=== PATIENT | male | born 1975 | race Two or more races ===

== ENCOUNTER 2021-11-12 11:06 | Inpatient (IN) | payer OTHER ==
[~2021-11-12] VITALS: Ht 177.8 cm; Wt 91.7 kg
[2021-11-12] MEDS ORDERED: ONDANSETRON HCL 4 MG/2 ML VIAL IV ONE (12:15)
[2021-11-12] MEDS ORDERED: MORPHINE SULFATE 4 MG/ML SYR/VIAL IV ONE (12:15)
[2021-11-12 13:09] LABS: Basophils # (auto) 0 10 ^3/uL (0-0.2); Basophils % (auto) 0.9 % (0.0-2.0); Eosinophils # (auto) 0.2 10 ^3/uL (0-0.8); Eosinophils % (auto) 5.5 % (0.0-7.0); Hematocrit 41.9 % (41.0-53.0); Hemoglobin 14.2 g/dL (13.5-17.5); Lymphocytes # (auto) 1.9 10 ^3/uL (0.4-5.4); Mean Corpuscular Hgb Conc. 33.9 g/dL (32.0-36.0); Mean Corpuscular Volume 91.5 fL (80.0-100.0); Monocytes # (auto) 0.6 10 ^3/uL (0-1.3); Monocytes % (auto) 14.3 % (0.0-12.0); Neutrophils # (auto) 1.5 10 ^3/uL (1.6-8.6); Neutrophils % (auto) 35.3 % (37.0-80.0); Nucleated Red Blood Cells % 0.1 %; Red Blood Cells 4.57 10^6/uL (4.5-5.90); Red Cell Distribution Width 13.6 % (11.8-14.3); White Blood Cell 4.4 10^3/uL (4.4-10.8)
[2021-11-12 13:18] LABS: Albumin 3.4 g/dL (3.4-5.0); BUN/Creatinine Ratio 14.1; Calcium 8.6 mg/dL (8.5-10.1); Potassium 4.5 mmol/L (3.5-5.1)
[2021-11-12 13:27] LABS: Bilirubin, Total 6.4 mg/dL (0.2-1.0); Total Protein 7.8 g/dL (6.4-8.2)
[2021-11-12 13:28] LABS: INR 1.12 (0.9-1.15)
[2021-11-12] MEDS ORDERED: PANTOPRAZOLE 40 MG/10 ML VIAL INJ IV ONE (14:30)
[2021-11-12] MEDS ORDERED: NITROGLYCERIN 0.4 MG SL TAB SL PRN (15:15)
[2021-11-12] MEDS ORDERED: ONDANSETRON HCL 4 MG/2 ML VIAL IV PRN (15:15)
[2021-11-12] MEDS ORDERED: MORPHINE SULFATE INJ 2 MG/ml SYRG IV PRN (15:15)
[2021-11-12] MEDS: D5W/SOD CHL 0.45% 1,000 ML IV SCH ×3 (17:42→23:54)
[2021-11-12 21:13] LABS: Urine Bacteria NONE SEEN /hpf (None Seen); Urine Blood Negative /uL (Negative); Urine Mucus FEW (None Seen); Urine WBC 1 /hpf (0 - 3)
[2021-11-13 04:37] VITALS: BP 102/59
[2021-11-13 07:58] LABS: Albumin 2.9 g/dL (3.4-5.0); Calcium 7.9 mg/dL (8.5-10.1); Potassium 3.7 mmol/L (3.5-5.1)
[2021-11-13 08:01] LABS: BUN/Creatinine Ratio 11.8; Bilirubin, Total 3.8 mg/dL (0.2-1.0); Total Protein 6.5 g/dL (6.4-8.2)
[2021-11-13 09:00] VITALS: BP 102/62
[2021-11-13] MEDS: MORPHINE SULFATE 4 MG/ML SYR/VIAL IV PRN (09:44)
[2021-11-13 13:00] VITALS: BP 101/66
[2021-11-13] MEDS: D5W/SOD CHL 0.45% 1,000 ML IV SCH ×3 (16:23→23:45)
[2021-11-13] MEDS: ENOXAPARIN SOD 40 MG/0.4 ML SYRINGE SC SCH (16:25)
[2021-11-13 17:00] VITALS: BP 102/64
[2021-11-13 22:00] VITALS: BP 92/57
[2021-11-14 05:00] VITALS: BP 102/60
[2021-11-14] MEDS: D5W/SOD CHL 0.45% 1,000 ML IV SCH (05:55)
[2021-11-14 06:30] LABS: Potassium 3.8 mmol/L (3.5-5.1)
[2021-11-14 06:40] LABS: Albumin 2.9 g/dL (3.4-5.0); BUN/Creatinine Ratio 13.4; Bilirubin, Total 2.6 mg/dL (0.2-1.0); Calcium 7.9 mg/dL (8.5-10.1); Total Protein 6.7 g/dL (6.4-8.2)
[2021-11-14 09:00] VITALS: BP 108/65
[2021-11-14] MEDS: ENOXAPARIN SOD 40 MG/0.4 ML SYRINGE SC SCH (09:37)
[2021-11-14] MEDS: MORPHINE SULFATE 4 MG/ML SYR/VIAL IV PRN (10:30)
[2021-11-14 13:00] VITALS: BP 102/62
[2021-11-14] MEDS ORDERED: traMADol HCL 50 MG TAB PO PRN (16:30)
[2021-11-14 17:00] VITALS: BP 115/67
[2021-11-14 22:00] VITALS: BP 99/57
[2021-11-15 05:00] VITALS: BP 110/68
[2021-11-15 08:00] VITALS: BP 112/70
[2021-11-15 09:00] VITALS: BP 112/70
[2021-11-15] MEDS: ENOXAPARIN SOD 40 MG/0.4 ML SYRINGE SC SCH (09:17)
[2021-11-15 13:00] VITALS: BP 105/68
[2021-11-15 14:07] VITALS: BP 105/68
== END 2021-11-15 15:10 | DRG 442 ==
LOC: EEVIPCON 11:06 → ER 11:06 → OVERFLOW 15:21 → WEST WING 22:23
PROVIDERS: ADMIT Internal Medicine; ATTEND Internal Medicine
DX: K72.00 Acute and subacute hepatic failure without coma (principal); E44.1 Mild protein-calorie malnutrition; R74.01 Elevation of levels of liver transaminase levels; R74.8 Abnormal levels of other serum enzymes; R79.89 Other specified abnormal findings of blood chemistry; Z68.29 Body mass index [BMI] 29.0-29.9, adult; Z86.19 Personal history of other infectious and parasitic diseases; Z90.49 Acquired absence of other specified parts of digestive tract; Z20.822 Contact with and (suspected) exposure to COVID-19; F17.210 Nicotine dependence, cigarettes, uncomplicated
CPT/HCPCS: 36415; 74176; 76705; 80053; 81001; 82140; 82150; 83690; 84484; 85025; 85610; 85730; 87081; 87340; 93005; 96374; 96375; C9113; G0378; J2405